=== PATIENT | female | born 1960 | race Asian ===

== ENCOUNTER 2020-12-28 13:01 | Outpatient (CLI) | payer BC ==
[2020-12-28 16:24] LABS: Hemoglobin A1c 5.6 % (4.0-6.0)
[2020-12-28 16:26] LABS: #Eosinphils 0.1 thou/uL (0.0-0.7); #Monocytes 0.4 thou/uL (0.11-0.59); #Neutrophils 3.1 thou/uL (1.40-6.50); %Basophils 0.5 % (0.0-1.0); %Eosinophils 1.1 % (0.0-10.0); %Lymphocytes 35.5 % (21.0-51.0); %Monocytes 6.3 % (0.0-10.0); %Neutrophils 56.6 % (42.0-75.0); Hemoglobin 12.8 g/dL (12.0-16.0); Mean Corpuscular HGB CONC 33.2 g/dL (32.0-36.0); Mean Corpuscular Hemoglobin 31.3 pg (27.0-31.0); Mean Corpuscular Volume 94.4 fL (78.0-98.0); Mean Platelet Volume 9.3 fL (7.4-10.4); Platelet Count 249 thou/uL (130-400); RBC Distribution Width 11.3 % (11.5-14.5); Red Blood Cell (RBC) Count 4.09 mill/uL (4.20-5.40); White Blood Cell (WBC) Count 5.5 thou/uL (4.8-10.8)
[2020-12-28 16:32] LABS: Bilirubin Negative (Negative); Blood, Urine Negative (Negative); Clarity Clear (Clear); Glucose, Urine (Dipstick) Normal (Negative); Ketone, Urine Negative (Negative); Leukocyte Negative Leu/uL (Negative); Nitrite Negative (Negative); Protein, Urine (Dipstick) Negative (Neg-Trace); Urobilinogen Normal mg/dL (Less than 2); pH, Urine 5.5 (5.0-9.0)
[2020-12-28 16:44] LABS: ALT (SGPT) 17 U/L (8-55); AST (SGOT) 19 U/L (5-34); Albumin 4.2 g/dL (3.4-4.8); Alkaline Phosphatase 62 U/L (40-110); Anion Gap 13 mmol/L (10-20); BUN (Urea Nitrogen) 21 mg/dL (9.8-20.1); Bilirubin, Total 0.6 mg/dL (0.2-1.2); Calc. Creatinine Clearance 0 mL/min (70-130); Calcium 9.6 mg/dL (7.8-10.44); Carbon Dioxide 25 mmol/L (23-31); Cardiac Risk 2.8 (Less than 4.5); Chloride 107 mmol/L (98-107); Cholesterol 162 mg/dl (< 200 Desired); Globulin 2.7 g/dL (2.4-3.5); Glucose 93 mg/dL (80-115); HDL Cholesterol 58 mg/dL (>60 Neg Risk); LDL Cholesterol, Calculated 81 mg/dL; Potassium 3.9 mmol/L (3.5-5.1); Protein, Total 6.9 g/dL (5.8-8.1); Sodium 141 mmol/L (136-145); Triglycerides 114 mg/dL (Less than 150)
[2020-12-28 17:09] LABS: Free T4 (Free Thyroxine) 1.02 ng/dL (0.70-1.48); Thyroid Stimulating Hormone 0.7344 uIU/mL (0.35-4.94)
== END 2020-12-28 13:02 | disposition home or self-care (01) ==
LOC: SCSRAD 13:01
PROVIDERS: ATTEND Family Medicine
DX: Z00.00 Encounter for general adult medical examination without abnormal findings (principal); M54.5 Low back pain; Z87.09 Personal history of other diseases of the respiratory system; M47.816 Spondylosis without myelopathy or radiculopathy, lumbar region
CPT/HCPCS: 36415; 71046; 72100; 80053; 80061; 81003; 83036; 84439; 84443; 85025

== ENCOUNTER 2024-03-13 10:40 | Outpatient (CLI) | payer BC | END 2024-03-13 10:41 | disposition home or self-care (01) | LOC: SCSRAD 10:40 | PROVIDERS: ATTEND Nurse Practitioner Family | DX: S89.92XA Unspecified injury of left lower leg, initial encounter (principal); M25.462 Effusion, left knee ==